=== PATIENT | female | born 2000 | race Caucasian/White ===

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

== ENCOUNTER 2018-04-02 00:02 | Emergency (ER) | payer BC ==
[2018-04-02 00:47] LABS: #Basophils 0.1 thou/uL (0.0-0.2); #Lymphocytes 1.6 thou/uL (1.20-3.40); #Monocytes 0.8 thou/uL (0.11-0.59); #Neutrophils 9.4 thou/uL (1.40-6.50); %Basophils 0.5 % (0.0-1.0); %Eosinophils 0.3 % (0.0-10.0); %Lymphocytes 13.7 % (28.0-48.0); %Monocytes 6.9 % (0.0-4.0); %Neutrophils 78.6 % (31.0-61.0); Hemoglobin 11.3 g/dL (12.0-16.0); Mean Corpuscular HGB CONC 32.3 g/dL (32.0-36.0); Mean Corpuscular Hemoglobin 23.2 pg (25.0-35.0); Mean Corpuscular Volume 71.9 fL (78.0-98.0); Mean Platelet Volume 10.4 fL (7.4-10.4); Platelet Count 275 thou/uL (130-400); RBC Distribution Width 16.2 % (11.5-14.5); Red Blood Cell (RBC) Count 4.86 mill/uL (4.00-5.20); White Blood Cell (WBC) Count 11.9 thou/uL (4.8-10.8)
[2018-04-02 00:53] LABS: PTT 29.2 SEC (22.9-36.1); Prothrombin Time 12.7 SEC (12.0-14.7)
[2018-04-02 01:07] LABS: ALT (SGPT) 8 U/L (8-55); AST (SGOT) 13 U/L (5-34); Albumin 3.3 g/dL (3.5-5.0); Alkaline Phosphatase 173 U/L (40-150); Anion Gap 13 mmol/L (10-20); BUN (Urea Nitrogen) 8 mg/dL (7.0-18.7); Bilirubin, Total 0.5 mg/dL (0.2-1.2); Calc. Creatinine Clearance 0 mL/min (70-130); Calcium 8.9 mg/dL (7.8-10.44); Carbon Dioxide 19 mmol/L (22-29); Chloride 108 mmol/L (98-107); Estimated GFR-MDRD Greater than 90; Glucose 101 mg/dL (70-105); Potassium 4.2 mmol/L (3.5-5.1); Protein, Total 6.3 g/dL (6.0-8.3); Sodium 136 mmol/L (136-145)
== END 2018-04-02 00:33 | disposition home or self-care (01) ==
LOC: ERS 00:02
DX: O99.89 Other specified diseases and conditions complicating pregnancy, childbirth and the puerperium (principal); R10.9 Unspecified abdominal pain; Z3A.00 Weeks of gestation of pregnancy not specified
CPT/HCPCS: 80053; 83880; 84484; 85025; 85610; 85730; 93005

== ENCOUNTER 2018-04-02 00:21 | Inpatient (IN) | payer BC ==
[2018-04-02] MEDS ORDERED: Ibuprofen 800 MG TAB PO PRN (00:44)
[2018-04-02] MEDS ORDERED: Meperidine HCl/PF 25 MG/ML VIAL IM/IV PRN (00:44)
[2018-04-02] MEDS ORDERED: Ondansetron PF 4 MG/2 ML Vial IVP PRN (00:44)
[2018-04-02] MEDS ORDERED: NS / Oxytocin 40 units/1000ml 1,000 ML IV PRN (00:44)
[2018-04-02] MEDS ORDERED: Butorphanol Tartrate 1 MG/ML VIAL SLOW IVP PRN (00:44)
[2018-04-02] MEDS ORDERED: Promethazine HCl 25 MG/ML VIAL IM PRN (00:44)
[2018-04-02] MEDS ORDERED: HYDROcodone/Acetaminophen 5/325 mg Tablet PO PRN ×2 (00:44)
[2018-04-02] MEDS ORDERED: Acetaminophen 500 MG TAB PO PRN (00:44)
[2018-04-02] MEDS ORDERED: Lidocaine 1% (PF) 30 ML VIAL SC PRN (00:44)
[2018-04-02] MEDS ORDERED: Penicillin G Potassium 5 MILL.UNITS VIAL ONE (00:47)
--- NOTE | 2018-04-02 00:56 | PDOC.LDHP ---
Labor and Delivery H&P Chief complaint: other HPI: 18 yo WF presents to ER with abdominal pain. Dating criteria: other (unknown LMP last sex was 06/2017) OB History Details: no PNC, pt. did not know she was Current complications: none Past Medical History: none reported Current medications: none Previous surgical history: none Allergies/Adverse Reactions: Allergies Allergy/AdvReac Type Severity Reaction Status Date / Time morphine Allergy Verified 04/02/18 00:55 Social history: none - Physical Exam Abnormal vital signs: P= 130 General: breathing through contractions Abdomen: gravid Extremeties: trace edema FHT: variability present Hettinger contractions every: UCs q 2-3 mins - Vaginal Exam cm dilated: 8 Station: 0 - OB Labs Blood type: unknown RH: unknown Antibody Screen: unknown HIV: unknown RPR: unknown HEPSAg: unknown 1 hour GCT: unknown - Assessment L&D Assessment: term patient in labor ( c/w term ) - Plan Plan: admit to L&D, GBS antibiotic prophylaxis, informed consent obtained, anesthesia consult for pain management
[2018-04-02] MEDS ORDERED: Fentanyl 4 mcg/Bup 0.1% Cadd 100 ML ONE ×2 (00:58→08:21)
[2018-04-02 00:59] VITALS: BMI 34.2
[2018-04-02] MEDS ORDERED: Lidocaine 1.5% w/Epi 1:200K 30 ML VIAL (Epid Use) ONE ×2 (00:59→01:12)
[2018-04-02] MEDS ORDERED: Penicillin G Potassium 5 MILL.UNITS in Sodium Chloride 0.9% 100 ML IVPB SCH (01:00)
[2018-04-02] MEDS ORDERED: Lactated Ringer's 1,000 ML IV SCH (01:00)
[2018-04-02] MEDS ORDERED: Fentanyl 100 MCG/2 ML VIAL ONE ×4 (01:12→13:02)
[2018-04-02 01:38] LABS: HBSAg Index 0.88 S/CO (0-0.99); HIV (1/2) Antibody/Antigen Non-Reactive (NonReactive); HIV 1/2 INDEX 0.09 S/CO (<1.00); Hep B Surf Ag Non-Reactive S/CO (NonReactive)
--- NOTE | 2018-04-02 02:06 | PDOC.EVN ---
Event Note - Event Note Event Note: Comfortable with epidural. FH= 36 cm. SVE by me= 6-7/90/0, vtx, BBOW. Fhts stable. UCs q 3 mins. Pen G infusing 2* to unknown GBS status. Plan: Watch progress, cont. ABX, expect .
[2018-04-02] MEDS: Lactated Ringer's 1,000 ML IV SCH ×4 (02:33→23:27)
[2018-04-02 04:11] LABS: Syphilis Antibody Nonreactive (Nonreactive); Syphilis Antibody Index 0.03 S/CO (<1.00 Non-Reactive)
[2018-04-02] MEDS: Penicillin G 2.5 MILL.units 2.5 MILL.UNITS in Premix Bag 1 BAG IVPB SCH ×2 (05:02→09:35)
--- NOTE | 2018-04-02 06:04 | PDOC.EVN ---
Event Note - Event Note Event Note: Remains comfortable with epidural. SVE 8/90/0, vtx. AROM- small amt. of clear fluid. FHTs stable. UCs have spaced to q 5 mins. 2nd dose of Pen G given.
--- NOTE | 2018-04-02 08:31 | PDOC.EVN ---
Event Note - Event Note Event Note: Patient seen at bedside with Dr Ifrah zayas Patient doing well Last delivery 2.5 years ago, HX retained placenta then but no PPH (per verbal) CLAUDIO in use emmanuel Michelle exam: c/c/0, ruptured EFW by minh: 8# (clinical) Monitors: cat 1, CTX every 2-3 A/P: second stage, multip with CLAUDIO...has until 3 hrs to deliver per ACOG guidelines. D/W patinr. I have ordered a HbAic for record as no 1 hr GTT done, no past HX GDM...also ordered UDS for record No sono done at admit
[2018-04-02 08:45] LABS: Hemoglobin A1c 5.2 % (4.0-6.0)
--- NOTE | 2018-04-02 09:22 | PDOC.EVN ---
Event Note - Event Note Event Note: Exam: C/C/0, prominant sacrum noted on exam...but has delievered before. We had one hour of passive descent, may begin pushing
--- NOTE | 2018-04-02 09:45 | PDOC.LDPN ---
Labor & Delivery Progress Note - Subjective Subjective: comfortable, vaginal pressure - Objective Vital signs reviewed and normal: yes General: NAD, resting Uterine fundus: tender to palpation Effacement: 100% Station: 1+ FHT: category 1 Paxson contractions every: 2-3min AROM: clear fluid - Assessment (1) Current Visit: Yes Status: Acute -: c/c/+1 cat 1 strip will begin pushing, monitor closely expectant management
[2018-04-02] MEDS ORDERED: Calcium Carbonate 500 MG ChewTAB PO PRN (10:10)
[2018-04-02] MEDS ORDERED: NS w/ Oxytocin 10 units 500 ML ONE (10:43)
[2018-04-02] MEDS ORDERED: NS w/ Oxytocin 10 units 500 ML IV SCH (10:45)
--- NOTE | 2018-04-02 10:47 | PDOC.EVN ---
Event Note - Event Note Event Note: Patients contractions are becoming more spaced out up to 5 minutes apart Will begin trial of pitocin as we are currently at 2.5 hours in second stage and still not making change will monitor closely
[2018-04-02] MEDS ORDERED: Azithromycin 500 MG in Sodium Chloride 0.9% 250 ML 250 ML IVPB SCH (11:38)
[2018-04-02] MEDS ORDERED: CEFAZOLIN 2 GM/50 ML BAG ONE (11:38)
--- NOTE | 2018-04-02 11:42 | PDOC.EVN ---
Event Note - Event Note Event Note: Preop CS Note I have seen as assessed this patient. Ms Webster is a G2 multip with her last delivery 2.5 years ago (). CLAUDIO is in use. Her second stage has now been 3.5 hours with no descent past 0 to +1 station. I just reexamined her as well , and exam confirms no descent past 1+ at max. She has reached her second stage time limit per ACOG guidelines. I suspect she is deep transverse arrest on exam (LOT). As the sacrum is prominant, I cannot rotate successfully. Lastly, when pushing, the baby has deep variable decels (moderate variability). Due to the above factors, I have recommended a primary CS. Dr Ifrah Michelle is with me at bedside. Patient states she is "not going to do a CS". I will go over risks and benefits to primary CS and confirm she accepts operative delivery as informed consent prior to our moving for the CS. Family member states she has anxiety disorder. Once patient accepts/is comfortable CS, we will give zmax in addition to regular ancef dose. SCDs
[2018-04-02] MEDS ORDERED: Bicitra 30 ML UDCUP PO SCH (11:45)
[2018-04-02] MEDS ORDERED: CEFAZOLIN 2 GM/50 ML BAG IVPB SCH (11:45)
--- NOTE | 2018-04-02 12:01 | PDOC.EVN ---
Event Note - Event Note Event Note: Patient has accepted CS as delivery method after informed consent. To OR...Dr Harry Reveles to assist
[2018-04-02] MEDS ORDERED: Lanolin Ointment 7 GM TUBE TOP PRN (12:04)
[2018-04-02] MEDS ORDERED: Acetaminophen/Codeine 30-300mg Tablet PO PRN (12:04)
[2018-04-02] MEDS ORDERED: Morphine PF 1 MG/ML SYR ONE (12:15)
[2018-04-02] MEDS ORDERED: NS / Oxytocin 40 units/1000ml 1,000 ML IV SCH (12:15)
[2018-04-02] MEDS ORDERED: Ondansetron PF 4 MG/2 ML Vial ONE ×2 (12:16→14:23)
[2018-04-02] MEDS ORDERED: Midazolam HCl 2 mg/2 ml Vial ONE (12:31)
[2018-04-02] MEDS ORDERED: Lidocaine 2% 10 ML INJ ONE (12:41)
[2018-04-02 12:58] LABS: Actual Bicarbonate (HCO3a) 22.6 mEq/L (22-28); Base Excess (BEa) -3.8 mEq/L (-2.0 to +3.0)
[2018-04-02 12:59] LABS: Analyzer IN Cardio OR
--- NOTE | 2018-04-02 13:31 | PDOC.OPDEL ---
OB Operative/Delivery Note Delivery Dr/Surgeon: Francy Reveles MD (Attending: Mark Mendez MD) Assist: Calli Long, MS3 Pre-Delivery Diagnosis: non-reassuring tracing, other (arrest of descent at second stage; suspected deep transverse arrest) Procedure/Post Delivery Dx: primary low transverse CS (2 layer hysterotomy closure) Anesthesia: epidural - Findings A Sex: male - 1 min: 8 - 5 min: 9 - Additional Findings/Plan Placenta delivered: spontaneous (Tobar, 3VC) findings: low transverse hysterotomy without extension, other ( Arterial cord gas: ph 7.3; skin sutured.) Estimated blood loss: 600 mL (QBL pending - see dictated report) Post delivery plan: routine recovery (see full dictated report)
--- NOTE | 2018-04-02 13:49 | OP ---
DATE OF PROCEDURE: 04/02/2018 This is my faculty attestation note. For full details, please see the full operative dictation by Dr. Reveles. NOTE PREOPERATIVE DIAGNOSES: 1. Multigravida at 2nd stage with prolonged 2nd stage of labor (3.5 hours), failure to descend. 2. decelerations with pushing. 3. Suspect deep transverse arrest. POSTOPERATIVE DIAGNOSES: 1. Multigravida at 2nd stage with prolonged 2nd stage of labor, failure to descend. 2. Status post . PROCEDURES PERFORMED: 1. Primary low transverse via Pfannenstiel skin incision. 2. Two layer hysterotomy closure. SURGEON: Francy Reveles MD ASSISTANTS: 1. (Faculty) Mark Mendez MD. 2. Calli Long (3rd year medical student). ANESTHESIA: Labor epidural. ANTIBIOTICS: Ancef preoperatively as well as Zithromax 500 mg. EBL was 600 mL, with QBL pending. DISPOSITION: Will be to recovery room in good and stable condition. No complications were noted. Comments: I was present and scrubbed in and assisted with the section performance. I performed 2nd layer closure of the hysterotomy as well. Skin was closed with suture and Dermabond placed over the incision. Job ID: [id number] [facility]
[2018-04-02] MEDS ORDERED: Ibuprofen 800 MG TAB PO SCH (14:00)
[2018-04-02 14:15] LABS: Hemoglobin 10.5 g/dL (12.0-16.0); Mean Corpuscular Hemoglobin 23.4 pg (25.0-35.0); Mean Corpuscular Volume 73.2 fL (78.0-98.0); Platelet Count 251 thou/uL (130-400); RBC Distribution Width 16.1 % (11.5-14.5); Red Blood Cell (RBC) Count 4.47 mill/uL (4.00-5.20); White Blood Cell (WBC) Count 22.6 thou/uL (4.8-10.8)
[2018-04-02] MEDS: Ketorolac Tromethamine 30 MG/ML VIAL IVP PRN ×2 (17:42→23:27)
[2018-04-02] MEDS: Simethicone Chewable 80 MG TAB PO PRN (21:16)
[2018-04-03] MEDS: Acetaminophen/Codeine 30-300mg Tablet PO PRN ×4 (05:09→21:17)
[2018-04-03 06:20] LABS: Hemoglobin 9.6 g/dL (12.0-16.0); Mean Corpuscular HGB CONC 31.4 g/dL (32.0-36.0); Mean Corpuscular Hemoglobin 23.2 pg (25.0-35.0); Mean Platelet Volume 9.7 fL (7.4-10.4); Platelet Count 228 thou/uL (130-400); RBC Distribution Width 16.7 % (11.5-14.5); Red Blood Cell (RBC) Count 4.15 mill/uL (4.00-5.20); White Blood Cell (WBC) Count 14.3 thou/uL (4.8-10.8)
--- NOTE | 2018-04-03 07:30 | PDOC.PP ---
Post Progress Note Post Day #: 1 Subjective: very sore across abdomen, very sorry at perineum as well, no NVD PO intake tolerated: yes Flatus: yes Ambulation: yes Vital Signs (12 hours) Temp Pulse Resp BP Pulse Ox 04/03/18 04:00 98.3 F 100 16 106/61 04/02/18 23:50 99.1 F 103 H 18 119/70 04/02/18 20:25 97.8 F 91 16 105/59 L 98 Weight Weight 193 lb - Physical Examination General: NAD Respiratory: non-labored breathing Abdominal: no distention, appropriately TTP Fundus firm & at: below umb Skin: no rash (dressing clean and dry) Neurological: no gross focal deficits Psychiatric: A&Ox3, normal affect Result Diagrams: 04/03/18 05:55 Additional Labs: Post Labs Blood Type O POSITIVE 04/02/18 00:29 Hep Bs Antigen Non-Reactive S/CO (NonReactive) 04/02/18 00:29 (1) delivery delivered Code(s): O82 - ENCOUNTER FOR DELIVERY WITHOUT INDICATION Status: Acute (2) Status: Acute - Assessment/Plan POD1 sp CS for failed 2nd stage. Pain inadequate controlled w only one T3. Discussed repeating Toradol x 1 this AM and will reevaluated if discomfort does not improve.
[2018-04-03] MEDS: Ketorolac Tromethamine 30 MG/ML VIAL IVP PRN ×2 (07:43→15:57)
[2018-04-03] MEDS ORDERED: Measles/Mumps/Rubella 10 MCG/0.5 ML VIAL SC ONE (09:00)
[2018-04-03] MEDS ORDERED: Adacel (T-DAP) 0.5 ML SYRINGE IM ONE (09:00)
[2018-04-03] MEDS ORDERED: Varicella virus, LIVE 0.5 ML VIAL SC ONE (09:00)
[2018-04-03] MEDS: Simethicone Chewable 80 MG TAB PO PRN ×2 (09:46→21:17)
[2018-04-03] MEDS: Prenatal Vitamin 1 TAB PO SCH (09:46)
[2018-04-03 14:26] LABS: Cocaine Metabolite Screen Not Detected (NotDetected); Medtox Reader # READER 4; Methamphetamine Not Detected (NotDetected); Phencyclidine (PCP) Not Detected (NotDetected); THC/Cannabinoid Screen Not Detected (NotDetected)
[2018-04-03 14:27] LABS: Amphetamine Not Detected (NotDetected); Barbiturates Screen Not Detected (NotDetected); Benzodiazepine Screen Not Detected (NotDetected); Methadone Not Detected (NotDetected); Opiate Screen Detected (NotDetected); Oxycodone Screen Not Detected (NotDetected); Tricyclic Screen Not Detected (NotDetected)
[2018-04-03] MEDS: Lactated Ringer's 1,000 ML IV SCH ×2 (15:47→19:25)
[2018-04-04] MEDS: Ibuprofen 800 MG TAB PO SCH ×3 (03:52→21:53)
[2018-04-04] MEDS: Lactated Ringer's 1,000 ML IV SCH ×3 (04:32→21:54)
--- NOTE | 2018-04-04 06:57 | PDOC.PP ---
Post Progress Note Post Day #: 2 PO intake tolerated: yes Flatus: yes Ambulation: yes Vital Signs (12 hours) Temp Pulse Resp BP Pulse Ox 04/04/18 03:49 97.2 F L 95 16 112/66 04/03/18 20:00 97.5 F L 99 16 115/68 97 Weight Weight 193 lb - Physical Examination General: NAD Cardiovascular: no m/r/g, RRR Respiratory: clear to auscultation bilaterally, non-labored breathing Abdominal: + bowel sounds, lochia, no distention, appropriately TTP Extremities: negative homans (B) Skin: CS incision dry & intact, no rash Neurological: no gross focal deficits Psychiatric: A&Ox3, normal affect Result Diagrams: 04/03/18 05:55 Additional Labs: Post Labs Blood Type O POSITIVE 04/02/18 00:29 Hep Bs Antigen Non-Reactive S/CO (NonReactive) 04/02/18 00:29 Rubella IgG Antibody Less than 0.90 index (Immune >0.99) L 04/02/18 00:29 (1) delivery delivered Code(s): O82 - ENCOUNTER FOR DELIVERY WITHOUT INDICATION Status: Acute - Assessment/Plan doing well pod 2 home am pod 3
[2018-04-04] MEDS: Prenatal Vitamin 1 TAB PO SCH (09:29)
[2018-04-04] MEDS: Simethicone Chewable 80 MG TAB PO PRN (09:29)
[2018-04-05] MEDS: Lactated Ringer's 1,000 ML IV SCH ×2 (03:52→10:02)
--- NOTE | 2018-04-05 05:30 | PDOC.PP ---
Post Progress Note Post Day #: 3 Subjective: Feeling well. Pain well controlled and feels ready to go home today. PO intake tolerated: yes Flatus: yes Ambulation: yes Vital Signs (12 hours) Temp Pulse Resp BP Pulse Ox 04/04/18 20:25 97.8 F 89 16 112/75 99 Weight Weight 87.543 kg - Physical Examination General: NAD Cardiovascular: no m/r/g, RRR Respiratory: clear to auscultation bilaterally, non-labored breathing Abdominal: + bowel sounds, lochia (scant), no distention, appropriately TTP Fundus firm & at: umbilicus Extremities: negative homans (B) Skin: CS incision dry & intact, no rash Neurological: no gross focal deficits Psychiatric: A&Ox3, normal affect Result Diagrams: 04/03/18 05:55 Additional Labs: Post Labs Blood Type O POSITIVE 04/02/18 00:29 Hep Bs Antigen Non-Reactive S/CO (NonReactive) 04/02/18 00:29 Rubella IgG Antibody Less than 0.90 index (Immune >0.99) L 04/02/18 00:29 (1) delivery delivered Code(s): O82 - ENCOUNTER FOR DELIVERY WITHOUT INDICATION Status: Acute (2) No care in current Code(s): O09.30 - SUPRVSN OF PREG W INSUFFICIENT ANTENAT CARE, UNSP TRIMESTER Status: Acute (3) Rubella nonimmune status, delivered, current hospitalization Code(s): O99.89 - OTH DISEASES AND CONDITIONS COMPL PREG/CHLDBRTH; Z28.3 - UNDERIMMUNIZATION STATUS Status: Acute - Assessment/Plan 18 yo G2 now P2 PPD #3 from pLT for arrest of descent 1. PPD #3 - Meeting all pp milestones - Plan for d/c today - Would like to f/u with Dr. Clark for 6 week pp visit 2. Chronic pain, on Tylenol #3 - Case mgmt involved for maternal and infant +UDS - Mother aware 3. Rubella non-immune - MMR prior to d/c - Tdap prior to d/c - Flu prior to d/c if desired Plan for discharge today Addendum - Attending - Attending Attestation Date/Time: 04/05/18 0611 I personally evaluated the patient and discussed the management with Dr. Reveles. I agree with the Assessment and Plan documented above.
[2018-04-05] MEDS: Ibuprofen 800 MG TAB PO SCH (05:38)
[2018-04-05 08:01] VITALS: BP 121/80; TEMP 97.6
--- NOTE | 2018-04-05 08:46 | OP ---
DATE OF PROCEDURE: 04/02/2018 OB Note RESIDENT SURGEON: Francy Reveles MD CLAY MILLER AND ATTENDING SURGEON: Mark Mendez MD SECOND ASSIST: Calli Long, MS-3. PROCEDURES: Primary low transverse section for arrest of descent. PREOPERATIVE DIAGNOSES: 1. Suspected term intrauterine . 2. Arrest of descent. 3. Non-reassuring heart tones. 4. No care. POSTOPERATIVE DIAGNOSES: 1. Suspected term intrauterine . 2. Arrest of descent. 3. Non-reassuring heart tones. 4. No care. ANESTHESIA: Epidural. INDICATIONS: The patient is a 18-year-old G3, P1-0-1-1 at approximately 40 weeks, who presented with abdominal pain. At that time, she was found to be 8 cm dilated and was admitted for anticipated spontaneous vaginal delivery. The patient became complete dilation at approximately 8:15 on 04/02/2018 and failed to make any descent. It was suspected that the was likely macrosomic and therefore with cephalopelvic disproportion, would not have a successful vaginal delivery. The patient pushed for over 3 hours without any descent and there were some intermittent late decelerations, which prompted the ultimate decision to proceed to delivery. PROCEDURE IN DETAIL: After risks, benefits, and alternatives were explained to the patient, she gave informed consent. Preoperative antibiotics included cefazolin 2 g IV and azithromycin 500 mg IV. The patient was taken to the operating room and epidural anesthesia was determined to be adequate. She was placed in the supine position with a leftward tilt and prepped and draped in the usual sterile fashion. A Pfannenstiel incision was made with a scalpel and carried down to the level of the fascia with Bovie cautery, which was sharply nicked. The fascial cut was extended bilaterally with Rogers scissors. The inferior and superior edges of the cut fascial edges were elevated with Caro clamps and underlying rectus muscles were sharply and bluntly dissected free. The recti were divided digitally and retracted medially. The peritoneum was entered bluntly and retracted manually. Michael O was placed. A low transverse score was made with a scalpel and the uterus was entered in the midline bluntly. Clear fluid was seen. The hysterotomy was extended in a cephalocaudal fashion. The infant was noted to be vertex and was easily delivered by fundal pressure. Mouth and nares were bulb suctioned. Cord clamped and cut after 30 seconds, and grossly normal male infant was handed to the waiting nurse. Cord gas was obtained. Cord blood was obtained. Placenta was delivered spontaneously with fundal massage at initial presentation, found to be intact with 3-vessel cord and sent to Pathology. The endometrium was curetted with a dry lap. The hysterotomy was closed with a running locking one Monocryl suture followed by a running nonlocking one Monocryl imbricating suture. Following this, hemostasis was noted. The abdomen was irrigated with saline and suctioned free of clots. The tubes and ovaries were visualized and noted to be normal. The hysterotomy was again noted to be hemostatic. The rectus muscle was closed with 3 interrupted 3-0 chromic suture. The fascia was closed with a running nonlocking 0 PDS suture. The subcutaneous tissue was irrigated and there were no bleeders. Subcutaneous tissue was approximated with interrupted 3-0 plain gut sutures. The skin was approximated with a running 3-0 Monocryl on a Franky needle and Dermabond was applied. Following this, a pressure dressing was placed. All counts were correct. The patient tolerated the procedure well and was taken to the recovery room in stable condition. ESTIMATED BLOOD LOSS: 600 mL, QBL pending. COMPLICATIONS: None. SPECIMENS: Cord blood and cord gas sent. FINDINGS: Grossly normal male with Apgars of 8 and 9. Grossly normal placenta with 3-vessel cord sent to Pathology. DRAINS: Harris to gravity draining blood-tinged urine, which was already draining dark red orange urine which was dark upon initiation of procedure. Urine output was approximately 200 mL. Job ID: [id number]
[2018-04-05] MEDS: Prenatal Vitamin 1 TAB PO SCH (09:00)
[2018-04-05] MEDS ORDERED: Boostrix 0.5 ML VIAL IM ONE (09:00)
== END 2018-04-05 14:35 | disposition home or self-care (01) | DRG 788 ==
LOC: L&D/OP 00:21 → L&D 00:50 → 3SW 16:08
PROVIDERS: ADMIT Obstetrics & Gynecology; ATTEND Obstetrics & Gynecology
PROC: 10D00Z1 Extraction of Products of Conception, Low, Open Approach (ICD-10-PCS; principal; 2018-04-02)
DX: O32.4XX0 Maternal care for high head at term, not applicable or unspecified (principal); O76 Abnormality in fetal heart rate and rhythm complicating labor and delivery; O48.0 Post-term pregnancy; Z3A.40 40 weeks gestation of pregnancy; Z37.0 Single live birth; O33.5XX0 Maternal care for disproportion due to unusually large fetus, not applicable or unspecified; O99.89 Other specified diseases and conditions complicating pregnancy, childbirth and the puerperium; Z28.3 Underimmunization status
CPT/HCPCS: 36415; 51702; 80053; 80306; 82805; 83036; 83880; 84484; 85025; 85027; 85610; 85730; 86762; 86780; 86850; 86900; 86901; 87340; 87389; 87491; 87591; 90471; 90686; 90715; 93005; 99285; G0008; J1885; J2001; J2250; J2274; J2405; J2540; J3010